=== PATIENT | female | born 1945 | race Caucasian/White ===

== ENCOUNTER → 2016-04-29 | Outpatient (CLI) | payer MEDICARE, MEDICAID ==
--- NOTE | 2016-04-29 17:37 | Diagnostic Imaging Report ---
EXAM: Bilateral screening mammogram The current study was also evaluated with a Computer Aided Detection (CAD) system. INDICATION: Screening. No current complaints stated on the questionnaire. COMPARISON: 08/31/2006. FINDINGS: The breasts are composed of scattered fibroglandular densities. An inferior right breast nodule is again noted without definite change at the 6:00 o'clock position. There is a lobulated right breast periareolar focal asymmetry measuring 1.2 CM in size which is not well seen on the previous exam due to poor penetration of the retroareolar regions. Retroareolar left breast duct ectasia appears stable. IMPRESSION: Right breast periareolar superior focal asymmetry seen. The correlating retroareolar region is difficult to evaluate on the comparison exam from 2006 with no other comparison studies available. Further evaluation with focal compression views and ultrasound is recommended. BI-RADS 0. Dictated by: Dictated on workstation # [id number]
== END ==
LOC: RAD 13:17
PROVIDERS: ATTEND Nurse Practitioner Community Health
DX: Z12.31 Encounter for screening mammogram for malignant neoplasm of breast (principal)

== ENCOUNTER → 2016-05-12 | Outpatient (CLI) | payer MEDICARE, MEDICAID ==
--- NOTE | 2016-05-12 18:51 | Diagnostic Imaging Report ---
Right breast diagnostic mammogram. The current study was also evaluated with a Computer Aided Detection (CAD) system. INDICATION: Periareolar asymmetry. FINDINGS: Focal asymmetry is still seen with smooth margins and branching appearance that may relate to duct ectasia. IMPRESSION: Periareolar lesion slightly above the nipple level is perhaps related to dilated ducts. Ultrasound evaluation pending. ACR BI-RADS Category 0: Incomplete. (Needs additional imaging evaluation). Result letter will be mailed to the patient. Note: At least 10% of breast cancer is not imaged by mammography. Dictated by: Dictated on workstation # [id number]
--- NOTE | 2016-05-12 19:00 | Diagnostic Imaging Report ---
EXAM: Right breast ultrasound. INDICATION: Periareolar region asymmetry seen on mammography. FINDINGS: In the superior periareolar region of the right breast there is 0.8 x 0.5 x 0.8 cm lobulated smoothly marginated hypoechoic lesion. There is no through-transmission and no convincing shadowing seen. No internal vascularity with color Doppler demonstrated. There is no other lesion identified. This matches the mammographic abnormality. IMPRESSION: Indeterminate lobulated 0.8 cm lesion in the superior periareolar region which may relate to dilated ducts with internal debris. Four-month follow-up ultrasound and mammogram are recommended to ensure stability. ACR BI-RADS Category 3: Probably benign findings. Result letter will be mailed to the patient. Note: At least 10% of breast cancer is not imaged by mammography. Dictated by: Dictated on workstation # [id number]
== END ==
LOC: RAD 13:35
PROVIDERS: ATTEND Nurse Practitioner Community Health
DX: R92.8 Other abnormal and inconclusive findings on diagnostic imaging of breast (principal)

== ENCOUNTER → 2016-05-21 | Outpatient (CLI) | payer MEDICARE, MEDICAID ==
--- NOTE | 2016-05-21 17:35 | Diagnostic Imaging Report ---
INDICATION: Back pain. AP and lateral views of the lumbar spine are obtained. FINDINGS: There is mild loss of height at L2. There is moderate loss of height of T12. These findings are of uncertain age. There is marked disc space narrowing at L1-L2 with ill-definition of the endplates. There is disc space narrowing which is less severe at L5-S1 and L2-L3. There is diffuse facet degenerative change from L3-S1. IMPRESSION: Degenerative changes. There is ill-definition of the disc at the L1-L2 level. It is not clear if this relates to degenerative change or discitis. There are compression deformities of L2 and T12 which are of uncertain age. Consider MRI for further evaluation as clinically warranted. Dictated by: Dictated on workstation # [id number]
== END ==
LOC: RAD 16:40
PROVIDERS: ATTEND Pain Medicine Pain Medicine
DX: M47.816 Spondylosis without myelopathy or radiculopathy, lumbar region (principal)
CPT/HCPCS: 72100

== ENCOUNTER → 2016-07-04 | Outpatient (CLI) | payer MEDICARE, MEDICAID ==
[~2016-07-04] MED LIST: GADOBUTROL 7.5 MMOL/7.5 ML (GADAVIST) VIAL IV ONE
[2016-07-04 13:15] LABS: CREATININE SERUM 1.2 MG/DL (0.60-1.30)
--- NOTE | 2016-07-04 15:42 | Diagnostic Imaging Report ---
PROCEDURE: MRI lumbar spine with and without contrast. TECHNIQUE: Multiplanar, multisequence MRI of the lumbar spine was performed with and without contrast. INDICATION: Back pain, abnormal lumbar spine radiographs 05/21/2016. That study utilized as comparison. No other priors. FINDINGS: There were no areas of abnormal enhancement following the administration of intravenous contrast. There were no findings to suggest lumbar spinal involvement by osteomyelitis or intervertebral discitis. Superior endplate compression fracture at T12 is without marrow edema compatible with an old compression deformity. There is slight grade 1 degenerative retrolisthesis T12 on L1, L1 on L2 and L2 on L3. These are off about 3 mm. Conus appeared normal. The nerves of the cauda equina revealed a normal pattern of dispersal. There is no paravertebral mass, hemorrhage, aneurysm or fluid collection demonstrated. No acute intrathecal or epidural pathology identified. L1-L2: Malalignment, disc bulge and endplate osteophytes flatten the ventral thecal sac but a substantial degree of canal stenosis was not felt present. There is moderate right and mild left neural foraminal stenosis. L2-L3: Endplate osteophytes and bulging disc material posteriorly mildly flatten the ventral thecal sac but a substantial degree of canal, foraminal or recess stenosis was not felt present. L3-L4: The disc and vertebral body endplates appeared normal. There is some buckled thickening of the ligamentum flavum and facet arthrosis. Owing to the posterior element hypertrophy, there is slight degree of canal stenosis as well as at least mild degrees of biforaminal narrowing. L4-L5: Bulging disc material, buckled thickened ligamenta flava, hypertrophied and fluid containing facets conspire to result in moderate canal stenosis with mild left and moderate right neural foraminal stenosis. L5-S1: Broad-based disc bulge at the midline effaces the ventral epidural fat and slightly indents the ventral thecal sac itself. Canal stenosis is mild and there is no substantial foraminal or recess narrowing. IMPRESSION: Old T12 superior endplate fracture. No evidence for infection or neoplasm. Degenerative changes to the discs, endplates and posterior elements result in multilevel predominantly mild to mild to moderate spinal stenoses as listed level by level above. Slight grade 1 multilevel degenerative listhesis. Dictated by: Dictated on workstation # [id number]
== END ==
LOC: RAD 12:38
PROVIDERS: ATTEND Pain Medicine Pain Medicine
DX: M54.5 Low back pain (principal)
CPT/HCPCS: 36415; 72158; 82565; 84520

== ENCOUNTER 2016-07-11 08:39 | Outpatient (CLI) | payer MEDICARE, MEDICAID ==
[~2016-07-11] VITALS: Ht 170.2 cm; Wt 104.3 kg
[2016-07-11] MEDS ORDERED: BUPIVACAINE 0.25% 30 ML (SENSORCAINE) VIAL ONE (09:02)
[2016-07-11] MEDS ORDERED: TRIAMCINOLONE ACET (KENALOG-40) 40 MG/ML 1 ML VIAL ONE (09:02)
[2016-07-11 09:17] VITALS: BP 118/65
[2016-07-11 10:06] VITALS: BP 158/79
--- NOTE | 2016-07-11 11:57 | Pain Medicine-Procedure ---
Procedure Pre-Op/Post-Op Diagnosis Diagnosis: disc disorder with radiculopathy, lumbar Indications for Operation Low back pain Attending Surgeon Abiagil Procedure Date of Service: Jul 11, 2016 Procedure: Lumbar Epidural Steroid Injection at the L4-L5 level under Fluoroscopic Guidance Procedure: Patient was identified in the holding area. After risks, benefits, and alternatives were discussed with the patient, informed consent was obtained. Patient was brought to the fluoroscopy suite and placed prone on the procedure room table. A time out was performed. Vital signs were monitored throughout the procedure. The patients low back was prepped and draped in the usual sterile fashion. The patients skin was anesthetized using 2% Lidocaine. A Tuohy needle was inserted and advanced to the L4-L5 epidural space under fluoroscopic guidance using the loss of resistance technique and intermittent projection of fluoroscopy. There was no paresthesia with needle placement. The needle position was confirmed in both the AP and lateral view. After negative aspiration 2ml of contrast was injected under live fluoroscopy which showed good spread of the contrast in the epidural space at the appropriate level, there was no intravascular or subarachnoid spread. Again, after negative aspiration for heme or CSF, 2 ml of 0.25% Bupivicaine, 2ml of preservative free normal saline, and 80mg of Kenalog was injected. The needle was removed and a sterile bandage was placed and the patient was transferred to the recovery area in stable condition. After a brief period of observation, patient was discharged to home with no new neurological deficits and no apparent complications. Complications None KUSUM BOWLES MD Jul 11, 2016 11:57 am
== END 2016-07-11 10:07 | disposition home or self-care (01) ==
LOC: CARD 08:39
PROVIDERS: ATTEND Pain Medicine Pain Medicine
DX: M51.16 Intervertebral disc disorders with radiculopathy, lumbar region (principal); Z79.899 Other long term (current) drug therapy
CPT/HCPCS: 62323

== ENCOUNTER → 2016-08-06 | Outpatient (CLI) | payer MEDICARE, MEDICAID ==
--- NOTE | 2016-08-06 10:54 | Diagnostic Imaging Report ---
INDICATION: Low back pain. EXAMINATION: Lumbar spine. FINDINGS: AP and lateral views of the lumbar spine show a grade 1 spondylolisthesis at L4-5. There is and old compression fracture of T12 with anterior wedging. The T11-12, T12-L1, and L1-L2 disc spaces are severely narrowed with large osteophyte formation. There is vacuum disc phenomena at L2-3, L4-5, and L5-S1 with disc space narrowing at each of those levels. There is a round calcification in the region of the right hepatic artery. IMPRESSION: Diffuse degenerative disc changes. No acute abnormality is seen in the lumbar spine. Dictated by: Dictated on workstation # [id number]
== END ==
LOC: RAD 10:31
PROVIDERS: ATTEND Pain Medicine Pain Medicine
DX: M54.5 Low back pain (principal)
CPT/HCPCS: 72100

== ENCOUNTER → 2016-08-12 | Outpatient (CLI) | payer MEDICARE, MEDICAID ==
[2016-08-12 08:54] LABS: MEAN PLATELET VOLUME 11.3 FL (7.4-10.4); RED BLOOD COUNT 3.63 10^6/uL (4.35-5.85)
[2016-08-12 09:08] LABS: BILIRUBIN,URINE NEGATIVE (NEGATIVE); KETONES,URINE NEGATIVE (NEGATIVE); LEUKOCYTE ESTERASE ,URINE 3+ (NEGATIVE); NITRITE,URINE NEGATIVE (NEGATIVE); PH,URINE 5 (5-9); PROTEIN,URINE NEGATIVE (NEGATIVE); UROBILINOGEN,URINE NORMAL (NORMAL)
[2016-08-12 09:14] LABS: ALBUMIN 3.9 G/DL (3.2-4.5); CALCIUM 9.5 MG/DL (8.5-10.1); CREATININE SERUM 1.39 MG/DL (0.60-1.30); PHOSPHORUS 3.4 MG/DL (2.3-4.7); POTASSIUM 4.9 MMOL/L (3.6-5.0); URIC ACID 4.2 MG/DL (2.6-7.2)
== END ==
LOC: LAB 08:25
PROVIDERS: ATTEND Nurse Practitioner
DX: E83.52 Hypercalcemia (principal); I12.9 Hypertensive chronic kidney disease with stage 1 through stage 4 chronic kidney disease, or unspecified chronic kidney disease; N18.4 Chronic kidney disease, stage 4 (severe); E78.5 Hyperlipidemia, unspecified; D63.1 Anemia in chronic kidney disease; R73.01 Impaired fasting glucose; R80.8 Other proteinuria; E79.0 Hyperuricemia without signs of inflammatory arthritis and tophaceous disease; N39.0 Urinary tract infection, site not specified
CPT/HCPCS: 36415; 80061; 80069; 81000; 82306; 82570; 82728; 83540; 84156; 84550; 85027; 87088

== ENCOUNTER 2016-08-15 12:54 | Outpatient (CLI) | payer MEDICARE, MEDICAID ==
[~2016-08-15] VITALS: Ht 170.2 cm; Wt 113.4 kg
[2016-08-15] MEDS ORDERED: BUPIVACAINE 0.25% 30 ML (SENSORCAINE) VIAL ONE (13:01)
[2016-08-15] MEDS ORDERED: TRIAMCINOLONE ACET (KENALOG-40) 40 MG/ML 1 ML VIAL ONE (13:01)
[2016-08-15 13:11] VITALS: BP 125/66
[2016-08-15 13:48] VITALS: BP 120/71
--- NOTE | 2016-08-15 14:59 | Pain Medicine-Procedure ---
Procedure Pre-Op/Post-Op Diagnosis Diagnosis: disc disorder with radiculopathy, lumbar Indications for Operation Low back pain Attending Surgeon Abigail Procedure Date of Service: Aug 15, 2016 Procedure: Lumbar Epidural Steroid Injection at the L4-L5 level under Fluoroscopic Guidance Procedure: Patient was identified in the holding area. After risks, benefits, and alternatives were discussed with the patient, informed consent was obtained. Patient was brought to the fluoroscopy suite and placed prone on the procedure room table. A time out was performed. Vital signs were monitored throughout the procedure. The patients low back was prepped and draped in the usual sterile fashion. The patients skin was anesthetized using 2% Lidocaine. A Tuohy needle was inserted and advanced to the L4-L5 epidural space under fluoroscopic guidance using the loss of resistance technique and intermittent projection of fluoroscopy. There was no paresthesia with needle placement. The needle position was confirmed in both the AP and lateral view. After negative aspiration 2ml of contrast was injected under live fluoroscopy which showed good spread of the contrast in the epidural space at the appropriate level, there was no intravascular or subarachnoid spread. Again, after negative aspiration for heme or CSF, 2 ml of 0.25% Bupivicaine, 2ml of preservative free normal saline, and 80mg of Kenalog was injected. The needle was removed and a sterile bandage was placed and the patient was transferred to the recovery area in stable condition. After a brief period of observation, patient was discharged to home with no new neurological deficits and no apparent complications. Complications None KUSUM BOWLES MD Aug 15, 2016 2:59 pm
== END 2016-08-15 13:49 ==
LOC: CARD 12:54
PROVIDERS: ATTEND Pain Medicine Pain Medicine
DX: M51.16 Intervertebral disc disorders with radiculopathy, lumbar region (principal); Z79.899 Other long term (current) drug therapy
CPT/HCPCS: 62323

== ENCOUNTER → 2016-10-17 | Outpatient (CLI) | payer MEDICARE, MEDICAID ==
--- NOTE | 2016-10-17 10:17 | Diagnostic Imaging Report ---
EXAMINATION: Right breast ultrasound. INDICATION: Followup periareolar nodule. FINDINGS: Again seen is an 8 x 3 x 8 mm lobulated hypoechoic indeterminate nodule in the 12 o'clock periareolar region. No internal vascularity is seen with color Doppler. IMPRESSION: Stable indeterminate etiology of the lobulated hypoechoic nodule at the 12 o'clock periareolar region, likely benign. Followup mammogram and ultrasound when the patient is due for her next bilateral mammogram in April 2017 would be recommended. ACR BI-RADS Category 3: Probably benign findings. Dictated by: Dictated on workstation # [id number]
--- NOTE | 2016-10-17 12:56 | Diagnostic Imaging Report ---
EXAMINATION: Right breast diagnostic mammogram with a Computer Aided Detection (CAD) system. INDICATION: Followup of periareolar nodule. FINDINGS: The right breast is composed of scattered fibroglandular densities. The lobulated focal asymmetry in the superior periareolar aspect is unchanged. Benign-appearing calcifications are seen. IMPRESSION: Unchanged superior periareolar focal asymmetry in the right breast with no adverse development. An ultrasound evaluation is pending. ACR BI-RADS Category 0: Incomplete. (Needs additional imaging evaluation). Result letter will be mailed to the patient. Note: At least 10% of breast cancer is not imaged by mammography. Dictated by: Dictated on workstation # [id number]
== END ==
LOC: RAD 07:46
PROVIDERS: ATTEND Nurse Practitioner Community Health
DX: N63 Unspecified lump in breast (principal)

== ENCOUNTER 2017-01-09 08:44 | Outpatient (RCR) | payer MEDICARE, MEDICAID ==
[2017-01-09 09:21] LABS: BILIRUBIN,URINE NEGATIVE (NEGATIVE); KETONES,URINE NEGATIVE (NEGATIVE); LEUKOCYTE ESTERASE ,URINE 3+ (NEGATIVE); NITRITE,URINE NEGATIVE (NEGATIVE); PH,URINE 5 (5-9); PROTEIN,URINE NEGATIVE (NEGATIVE); UROBILINOGEN,URINE NORMAL (NORMAL)
[2017-01-09 09:24] LABS: RED BLOOD COUNT 4.04 10^6/uL (4.35-5.85); WHITE BLOOD COUNT 9.7 10^3/uL (4.3-11.0)
[2017-01-09 09:47] LABS: ALBUMIN 4.4 GM/DL (3.2-4.5); CREATININE SERUM 1.55 MG/DL (0.60-1.30); PHOSPHORUS 3.6 MG/DL (2.3-4.7); POTASSIUM 4.6 MMOL/L (3.6-5.0); URIC ACID 4.1 MG/DL (2.6-7.2)
== END 2017-01-24 | disposition home or self-care (01) ==
LOC: LAB 08:44 → EDSTATUS 09:20
PROVIDERS: ATTEND Nurse Practitioner
DX: N25.81 Secondary hyperparathyroidism of renal origin (principal); D63.1 Anemia in chronic kidney disease; I12.9 Hypertensive chronic kidney disease with stage 1 through stage 4 chronic kidney disease, or unspecified chronic kidney disease; N18.4 Chronic kidney disease, stage 4 (severe); N39.0 Urinary tract infection, site not specified; E83.52 Hypercalcemia; E78.5 Hyperlipidemia, unspecified; R80.8 Other proteinuria; R73.01 Impaired fasting glucose; E79.0 Hyperuricemia without signs of inflammatory arthritis and tophaceous disease
CPT/HCPCS: 36415; 80061; 80069; 81000; 82306; 82570; 82728; 83540; 84156; 84550; 85027; 87088

== ENCOUNTER → 2017-03-31 | Outpatient (CLI) | payer MEDICARE, MEDICAID ==
[2017-03-31 09:36] LABS: CREATININE SERUM 1.41 MG/DL (0.60-1.30)
--- NOTE | 2017-03-31 13:59 | Diagnostic Imaging Report ---
PROCEDURE: CT abdomen without contrast. TECHNIQUE: Multiple contiguous axial images were obtained through the abdomen without the use of intravenous contrast. INDICATION: Pain, calcified nodule noted on lumbar radiographs of 08/06/2016. 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 There is only mild scattered calcified plaque of the nonaneurysmal abdominal aorta. The gallbladder is surgically absent. The liver, spleen, adrenals, and pancreas are unremarkable. The unopacified left renal hilar vascularity is unremarkable. There are no opaque kidney stones. There is a tiny fatty umbilical hernia. There is no bowel, biliary, or urinary tract obstruction. There is no ascites. IMPRESSION: 1. 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 Dimensions are as above. This shows no rupture. 2. An acute appearing abnormality is not identified. Dictated by: Dictated on workstation # [id number]
== END ==
LOC: RAD 09:07
PROVIDERS: ATTEND Nurse Practitioner Family
DX: I72.2 Aneurysm of renal artery (principal)
CPT/HCPCS: 36415; 74150; 82565; 84520

== ENCOUNTER → 2017-05-07 | Outpatient (CLI) | payer MEDICARE, MEDICAID ==
[2017-05-07 08:42] LABS: HEMOGLOBIN 10.9 G/DL (11.5-16.0); MEAN PLATELET VOLUME 11.5 FL (7.4-10.4); RED BLOOD COUNT 3.71 10^6/uL (4.35-5.85); WHITE BLOOD COUNT 8.7 10^3/uL (4.3-11.0)
[2017-05-07 08:48] LABS: BILIRUBIN,URINE NEGATIVE (NEGATIVE); CLARITY,URINE CLEAR; COLOR,URINE YELLOW; GLUCOSE, URINE (UA) NEGATIVE (NEGATIVE); KETONES,URINE NEGATIVE (NEGATIVE); LEUKOCYTE ESTERASE ,URINE 2+ (NEGATIVE); NITRITE,URINE NEGATIVE (NEGATIVE); PH,URINE 6 (5-9); PROTEIN,URINE NEGATIVE (NEGATIVE); UROBILINOGEN,URINE NORMAL (NORMAL)
[2017-05-07 08:57] LABS: ALBUMIN 4.1 GM/DL (3.2-4.5); CALCIUM 9.8 MG/DL (8.5-10.1); CREATININE SERUM 1.35 MG/DL (0.60-1.30); PHOSPHORUS 2.6 MG/DL (2.3-4.7)
[2017-05-07 09:02] LABS: BACTERIA,URINE FEW /HPF
[2017-05-07 09:09] LABS: URINE CREATININE FOR RATIO 97 MG/DL (30-125); URINE PROTEIN FOR RATIO ONLY < 6 MG/DL (6-12)
== END ==
LOC: LAB 08:12
PROVIDERS: ATTEND Nurse Practitioner
DX: I12.9 Hypertensive chronic kidney disease with stage 1 through stage 4 chronic kidney disease, or unspecified chronic kidney disease (principal); N18.4 Chronic kidney disease, stage 4 (severe); E83.52 Hypercalcemia; N25.81 Secondary hyperparathyroidism of renal origin; E78.5 Hyperlipidemia, unspecified; D63.1 Anemia in chronic kidney disease; R73.01 Impaired fasting glucose; R80.8 Other proteinuria; E79.0 Hyperuricemia without signs of inflammatory arthritis and tophaceous disease; N39.0 Urinary tract infection, site not specified; E87.2 Acidosis
CPT/HCPCS: 36415; 80069; 81000; 82306; 82570; 84156; 85027; 87088

== ENCOUNTER → 2017-06-24 | Outpatient (CLI) | payer MEDICARE, MEDICAID ==
--- NOTE | 2017-06-24 18:43 | Diagnostic Imaging Report ---
INDICATION: Right breast density. Patient presents for six-month followup. COMPARISON: Correlation is made with prior mammogram from 10/17/2016, 04/29/2016. The current study was also evaluated with a Computer Aided Detection (CAD) system. FINDINGS: Nodular density at the 12 o'clock retroareolar location of the right breast appears stable. No new mass or malignant appearing microcalcifications are seen. The axillae are unremarkable. IMPRESSION: Stable bilateral mammograms. Ultrasound of the right breast nodule is recommended and will be performed today. ACR BI-RADS Category 0: Incomplete. (Needs additional imaging evaluation). Result letter will be mailed to the patient. Note: At least 10% of breast cancer is not imaged by mammography. Dictated by: Dictated on workstation # [id number]
--- NOTE | 2017-06-24 18:45 | Diagnostic Imaging Report ---
INDICATION: Right breast nodule. Patient presents for followup. COMPARISON: Correlation is made with right breast ultrasound from 10/17/2016. FINDINGS: The previously noted hypoechoic nodule at the 12 o'clock retroareolar location appears stable at 7 mm x 3 mm x 8 mm. No internal vascularity is seen. No new abnormality is detected. IMPRESSION: Stable right breast nodule. Followup mammogram and ultrasound in six months is recommended to show continued stability. ACR BI-RADS Category 3: Probably benign findings. Dictated by: Dictated on workstation # [id number]
== END ==
LOC: RAD 12:22
PROVIDERS: ATTEND Nurse Practitioner Community Health
DX: N63.10 Unspecified lump in the right breast, unspecified quadrant (principal)
CPT/HCPCS: 77066

== ENCOUNTER → 2017-08-24 | Outpatient (CLI) | payer MEDICARE, MEDICAID ==
[2017-08-24 09:00] LABS: HEMOGLOBIN 10.6 G/DL (11.5-16.0); MEAN PLATELET VOLUME 11.1 FL (7.4-10.4); RED BLOOD COUNT 3.73 10^6/uL (4.35-5.85); RED CELL DISTRIBUTION WIDTH 14.5 % (10.0-14.5); WHITE BLOOD COUNT 8.3 10^3/uL (4.3-11.0)
[2017-08-24 09:08] LABS: BILIRUBIN,URINE NEGATIVE (NEGATIVE); CLARITY,URINE CLEAR; COLOR,URINE YELLOW; GLUCOSE, URINE (UA) NEGATIVE (NEGATIVE); KETONES,URINE NEGATIVE (NEGATIVE); LEUKOCYTE ESTERASE ,URINE 1+ (NEGATIVE); NITRITE,URINE NEGATIVE (NEGATIVE); PH,URINE 5 (5-9); PROTEIN,URINE NEGATIVE (NEGATIVE); UROBILINOGEN,URINE NORMAL (NORMAL)
[2017-08-24 09:14] LABS: ALBUMIN 4.2 GM/DL (3.2-4.5); CALCIUM 10.8 MG/DL (8.5-10.1); CREATININE SERUM 1.42 MG/DL (0.60-1.30); PHOSPHORUS 3.1 MG/DL (2.3-4.7); POTASSIUM 4.3 MMOL/L (3.6-5.0)
[2017-08-24 09:16] LABS: BACTERIA,URINE FEW /HPF
== END ==
LOC: LAB 08:40
PROVIDERS: ATTEND Nurse Practitioner
DX: I12.9 Hypertensive chronic kidney disease with stage 1 through stage 4 chronic kidney disease, or unspecified chronic kidney disease (principal); D63.1 Anemia in chronic kidney disease; N18.4 Chronic kidney disease, stage 4 (severe); N39.0 Urinary tract infection, site not specified; E83.52 Hypercalcemia; N25.81 Secondary hyperparathyroidism of renal origin; E78.5 Hyperlipidemia, unspecified; R73.01 Impaired fasting glucose; R80.8 Other proteinuria; E79.0 Hyperuricemia without signs of inflammatory arthritis and tophaceous disease; E87.2 Acidosis
CPT/HCPCS: 36415; 80069; 81000; 82570; 82728; 83540; 84156; 85027

== ENCOUNTER → 2018-01-13 | Outpatient (CLI) | payer MEDICARE, MEDICAID ==
--- NOTE | 2018-01-13 13:18 | Diagnostic Imaging Report ---
INDICATION: Six-month followup right breast nodule. Correlation made with prior mammograms 06/24/2017, 10/17/2016 as well as 05/12/2016. Unilateral right 2-D and 3-D diagnostic mammography was performed. Scattered fibroglandular densities are identified in the right breast. The nodular density in the 12 o'clock retroareolar right breast appears stable. No new mass or malignant-appearing micro-calcifications are seen. The right axilla is unremarkable. IMPRESSION: BI-RADS zero Stable right mammogram and right breast retroareolar nodule. Sonographic interrogation is recommended to show continued stability by ultrasound and will be performed today. Dictated by: Dictated on workstation # [id number]
--- NOTE | 2018-01-13 18:14 | Diagnostic Imaging Report ---
INDICATION: Retroareolar density. Patient presents for six-month followup. COMPARISON: Correlation is made with a diagnostic mammogram earlier the same day as well as a prior breast ultrasound from 06/24/2017. EXAMINATION: Sonographic interrogation of the 12 o'clock retroareolar region was performed. FINDINGS: There is an area of hypoechogenicity at this location measuring 7 mm x 3 mm x 7 mm, similar to prior study. This could represent fibroglandular tissue. No vascularity is seen. No other abnormality is detected. IMPRESSION: BI-RADS category 2. Stable right breast ultrasound. This area now demonstrates approximately 20 months of stability. Patient may return to routine annual screening mammography. Dictated by: Dictated on workstation # [id number]
== END ==
LOC: RAD 12:50
PROVIDERS: ATTEND Nurse Practitioner Community Health
DX: N63.10 Unspecified lump in the right breast, unspecified quadrant (principal)

== ENCOUNTER → 2018-03-23 | Outpatient (CLI) | payer MEDICARE, MEDICAID ==
[2018-03-23 09:05] LABS: HEMOGLOBIN 10.1 G/DL (11.5-16.0); MEAN PLATELET VOLUME 11.3 FL (7.4-10.4); RED BLOOD COUNT 3.53 10^6/uL (4.35-5.85); RED CELL DISTRIBUTION WIDTH 14.4 % (10.0-14.5); WHITE BLOOD COUNT 7.3 10^3/uL (4.3-11.0)
[2018-03-23 09:24] LABS: ALBUMIN 4.2 GM/DL (3.2-4.5); CALCIUM 9.9 MG/DL (8.5-10.1); CREATININE SERUM 1.41 MG/DL (0.60-1.30); PHOSPHORUS 2.8 MG/DL (2.3-4.7); POTASSIUM 4.1 MMOL/L (3.6-5.0)
[2018-03-23 09:30] LABS: URINE CREATININE FOR RATIO 86 MG/DL (30-125); URINE PROTEIN FOR RATIO ONLY < 6 MG/DL (6-12)
== END ==
LOC: LAB 08:39
PROVIDERS: ATTEND Internal Medicine Nephrology
DX: I12.9 Hypertensive chronic kidney disease with stage 1 through stage 4 chronic kidney disease, or unspecified chronic kidney disease (principal); N18.4 Chronic kidney disease, stage 4 (severe); R73.01 Impaired fasting glucose; E83.52 Hypercalcemia; N25.81 Secondary hyperparathyroidism of renal origin; E78.5 Hyperlipidemia, unspecified; D63.1 Anemia in chronic kidney disease; R80.8 Other proteinuria; E79.0 Hyperuricemia without signs of inflammatory arthritis and tophaceous disease; N39.0 Urinary tract infection, site not specified; E87.2 Acidosis
CPT/HCPCS: 36415; 80061; 80069; 82306; 82570; 83036; 83970; 84156; 85027

== ENCOUNTER 2018-06-28 05:35 | Outpatient (CLI) | payer MEDICARE, MEDICAID ==
[~2018-06-28] VITALS: Ht 170.2 cm; Wt 113.4 kg
[2018-06-28] MEDS ORDERED: FERR-65 PO (09:21)
[2018-06-28] MEDS ORDERED: CHOL100045 PO (09:21)
[2018-06-28] MEDS ORDERED: ALLO100T PO (09:21)
[2018-06-28] MEDS ORDERED: GABA-490 PO (09:21)
[2018-06-28] MEDS ORDERED: LISI1TAB10 PO (09:21)
[2018-06-28] MEDS ORDERED: ESCI10TA PO (09:21)
[2018-06-30] MEDS ORDERED: TRAM50TA2 PO (09:47)
== END 2018-06-28 09:24 | disposition home or self-care (01) ==
LOC: PREOP 05:35
PROVIDERS: ATTEND Surgery
DX: Z01.818 Encounter for other preprocedural examination (principal)

== ENCOUNTER 2018-06-30 07:43 | Day surgery (SDC) | payer MEDICARE, MEDICAID ==
[~2018-06-30] VITALS: Ht 170.2 cm; Wt 113.4 kg
[~2018-06-30 07:43] MED LIST changes: +ALLO100T PO; +CHOL100045 PO; +ESCI10TA PO; +FERR-65 PO; +GABA-490 PO; -GADOBUTROL 7.5 MMOL/7.5 ML (GADAVIST) VIAL IV ONE; +LISI1TAB10 PO
[2018-06-30] MEDS ORDERED: LACTATED RINGERS 1,000 ML IV PRN (07:59)
[2018-06-30] MEDS ORDERED: ceFAZolin 2 GM IV Premixed 50 ML IV ONE (08:00)
[2018-06-30 08:10] VITALS: BP 109/58
--- NOTE | 2018-06-30 08:23 | Progress Note-Pre Operative ---
Pre-Operative Progress Note H&P Reviewed The H&P was reviewed, patient examined and no changes noted. Date Seen by Provider: Jun 17, 2018 Time Seen by Provider: 10:00 Date H&P Reviewed: Jun 30, 2018 Time H&P Reviewed: 08:23 Pre-Operative Diagnosis: Josh cyst- Forehead MAGDALENA DEVI MD Jun 30, 2018 08:23
[2018-06-30] MEDS ORDERED: BUP/EPI 0.5% 1:200,000 (SENSORCAINE) 30 ML VIAL ONE (08:35)
[2018-06-30] MEDS ORDERED: ceFAZolin 2 GM IV Premixed 50 ML ONE (08:50)
[2018-06-30] MEDS ORDERED: ONDANSETRON 4 MG/2 ML (SDV) Z0FRAN ONE (08:56)
[2018-06-30] MEDS ORDERED: proPOfol 200 MG/20 ML (DIPRIVAN) VIAL IV ONE (08:56)
[2018-06-30] MEDS ORDERED: MIDAZOLAM 2 MG/2 ML (VERSED) VIAL ONE (08:56)
[2018-06-30] MEDS ORDERED: LIDOCAINE PF 2% 5 ML (XYLOCAINE) VIAL ONE (08:56)
[2018-06-30] MEDS ORDERED: fentaNYL INJECTION 100 MCG/2 ML AMP ONE (08:56)
[2018-06-30] MEDS ORDERED: PHENYLEPHRINE 100 MCG/ML 10 ML (ANESTHESIA) SYR ONE (09:29)
[2018-06-30] MEDS ORDERED: TRAM50TA2 PO (09:47)
--- NOTE | 2018-06-30 09:48 | Discharge Inst-Simple/Standard ---
Discharge Inst-Standard Discharge Medications New, Converted or Re-Newed RX: RX on Chart Patient Instructions/Follow Up Plan of Care/Instructions/FU: Dressing off in 48 hours. No sutures to be removed. To call if concerns arise Activity as Tolerated: Yes Discharge Diet: No Restrictions MAGDALENA DEVI MD Jun 30, 2018 09:48
[2018-06-30] MEDS ORDERED: morphine INJ 10 MG/ML 1ML (SYR OR VIAL) IVP ONE (10:00)
[2018-06-30] MEDS ORDERED: ONDANSETRON 4 MG/2 ML (SDV) Z0FRAN IVP PRN (10:00)
[2018-06-30] MEDS ORDERED: MEPERIDINE (DEMEROL) INJ 50 MG/ML IVP ONE (10:00)
[2018-06-30 10:40] VITALS: BP 112/59
[2018-06-30 11:10] VITALS: BP 109/54
[2018-06-30 11:20] VITALS: BP 109/54
--- NOTE | 2018-06-30 12:04 | Operative Report ---
Operative Report Date of Procedure/Surgery Jun 30, 2018 Surgeon (s) MAGDALENA DEVI MD [employer] Preflight (s): N/A Post-Operative Diagnosis sebaceous cyst of forehead Procedure Performed excision Description of Procedure Anesthesia Type: General Estimated blood loss (mL): minimal Specimen(s) collected/removed sebaceous cyst Description of the Procedure Indication for the procedure: This lady presented with a 2 cm sebaceous cyst over her forehead and requested excision. Informed consent was obtained after reviewing the operative details and complications of hematoma, wound infection and recurrence of the cyst. Description of the procedure: She was placed supine on the operating table and general anesthesia induced. Prophylactic antibiotics were administered intravenously, to protect against wound infection. The area was prepared and draped in the usual sterile manner. Preemptive analgesia was established using 0.5 percent Marcaine with epinephrine. An elliptical incision about 3 cm in length was made and the cyst excised intact. Hemostasis was achieved using cautery and the incision closed using intermittent 4-0 Vicryl, in a subcuticular fashion. Steri-Strips and a compression dressing were applied. She tolerated the procedure well, was extubated in the operative room and taken to the recovery room in a stable condition. Findings of the Procedure see operative report Allergies and Home Medications Allergies Coded Allergies: No Known Drug Allergies (Unverified , 07/04/16) Home Medications Allopurinol 100 Mg Tablet, 100 MG PO BID, (Reported) Cholecalciferol (Vitamin D3) 1,000 Unit Tablet, 1,000 UNIT PO Q48H, (Reported) Escitalopram Oxalate 10 Mg Tablet, 10 MG PO DAILY, (Reported) Ferrous Sulfate 325 Mg Tablet, 325 MG PO BID, (Reported) Gabapentin 400 Mg Capsule, 400 MG PO TID PRN for neuropathic pain, (Reported) Lisinopril/Hydrochlorothiazide 1 Each Tablet, 1 EACH PO DAILY, (Reported) Tramadol HCl 50 Mg Tablet, 50 MG PO Q12H Prescribed by: MAGDALENA DEVI on 06/30/18 0957 Patient Home Medication List Home Medication List Reviewed: Yes MAGDALENA DEVI MD Jun 30, 2018 12:04
--- NOTE | 2018-06-30 14:44 | Anesthesia-General Post-Op ---
General Patient Condition Mental Status/LOC: Same as Preop Cardiovascular: Satisfactory Nausea/Vomiting: Absent Respiratory: Satisfactory Pain: Controlled Complications: Absent Post Op Complications Complications None Follow Up Care/Instructions Patient Instructions None needed. Anesthesia/Patient Condition Patient Condition Patient was seen after the procedure and she was doing well, no complaints, stable vital signs, no apparent adverse anesthesia problems. SARAH BALBUENA DO Jun 30, 2018 14:44
== END 2018-06-30 11:25 | disposition home or self-care (01) ==
LOC: SDC 07:43
PROVIDERS: ATTEND Surgery
DX: L72.3 Sebaceous cyst (principal); Z11.2 Encounter for screening for other bacterial diseases; I12.9 Hypertensive chronic kidney disease with stage 1 through stage 4 chronic kidney disease, or unspecified chronic kidney disease; N18.9 Chronic kidney disease, unspecified; K21.9 Gastro-esophageal reflux disease without esophagitis; Z86.73 Personal history of transient ischemic attack (TIA), and cerebral infarction without residual deficits; Z79.899 Other long term (current) drug therapy
CPT/HCPCS: 87081

== ENCOUNTER → 2018-09-21 | Outpatient (CLI) | payer MEDICARE, MEDICAID ==
[~2018-09-21] MED LIST changes: +TRAM50TA2 PO
[2018-09-21 09:01] LABS: BASOPHILS % (AUTO) 0 % (0-10); EOSINOPHILS # (AUTO) 0.4 10^3/uL (0.0-0.3); EOSINOPHILS % (AUTO) 5 % (0-10); HEMATOCRIT 34 % (35-52); HEMOGLOBIN 10.9 G/DL (11.5-16.0); LYMPHOCYTES # (AUTO) 2.1 X 10^3 (1.0-4.0); LYMPHOCYTES % (AUTO) 23 % (12-44); MEAN CORPUSCULAR HEMOGLOBIN 28 PG (25-34); MEAN CORPUSCULAR HGB CONC 32 G/DL (32-36); MEAN CORPUSCULAR VOLUME 89 FL (80-99); MEAN PLATELET VOLUME 11.5 FL (7.4-10.4); MONOCYTES # (AUTO) 0.7 X 10^3 (0.0-1.0); MONOCYTES % (AUTO) 7 % (0-12); NEUTROPHILS % (AUTO) 65 % (42-75); PLATELET COUNT 238 10^3/uL (130-400); RED CELL DISTRIBUTION WIDTH 13.9 % (10.0-14.5); WHITE BLOOD COUNT 9.2 10^3/uL (4.3-11.0)
[2018-09-21 09:10] LABS: BILIRUBIN,URINE NEGATIVE (NEGATIVE); CLARITY,URINE CLEAR; COLOR,URINE YELLOW; GLUCOSE, URINE (UA) NEGATIVE (NEGATIVE); KETONES,URINE NEGATIVE (NEGATIVE); LEUKOCYTE ESTERASE ,URINE 1+ (NEGATIVE); NITRITE,URINE NEGATIVE (NEGATIVE); PH,URINE 6.5 (5-9); PROTEIN,URINE NEGATIVE (NEGATIVE); UROBILINOGEN,URINE NORMAL (NORMAL)
[2018-09-21 09:18] LABS: BACTERIA,URINE FEW /HPF
[2018-09-21 09:23] LABS: ALBUMIN 4.3 GM/DL (3.2-4.5); BILIRUBIN,TOTAL 0.3 MG/DL (0.1-1.0); CALCIUM 10.9 MG/DL (8.5-10.1); CREATININE SERUM 2.04 MG/DL (0.60-1.30); MAGNESIUM 1.5 MG/DL (1.8-2.4); TOTAL PROTEIN 6.9 GM/DL (6.4-8.2); URIC ACID 4.8 MG/DL (2.6-7.2)
== END ==
LOC: LAB 08:40
PROVIDERS: ATTEND Nurse Practitioner
DX: I13.10 Hypertensive heart and chronic kidney disease without heart failure, with stage 1 through stage 4 chronic kidney disease, or unspecified chronic kidney disease (principal); N18.4 Chronic kidney disease, stage 4 (severe); E83.52 Hypercalcemia; N25.81 Secondary hyperparathyroidism of renal origin; E78.5 Hyperlipidemia, unspecified; D63.1 Anemia in chronic kidney disease; R73.01 Impaired fasting glucose; R80.8 Other proteinuria; E79.0 Hyperuricemia without signs of inflammatory arthritis and tophaceous disease; N39.0 Urinary tract infection, site not specified; E87.2 Acidosis
CPT/HCPCS: 36415; 80053; 80061; 81000; 82306; 82570; 83735; 83970; 84156; 84550; 85025

== ENCOUNTER → 2018-10-11 | Outpatient (CLI) | payer MEDICARE, MEDICAID ==
[2018-10-11 09:31] LABS: ALBUMIN 4.4 GM/DL (3.2-4.5); CALCIUM 10.8 MG/DL (8.5-10.1); CREATININE SERUM 1.74 MG/DL (0.60-1.30); PHOSPHORUS 2.4 MG/DL (2.3-4.7); URIC ACID 4.1 MG/DL (2.6-7.2)
== END ==
LOC: LAB 08:44
PROVIDERS: ATTEND Nurse Practitioner
DX: I13.10 Hypertensive heart and chronic kidney disease without heart failure, with stage 1 through stage 4 chronic kidney disease, or unspecified chronic kidney disease (principal); N18.4 Chronic kidney disease, stage 4 (severe); E83.52 Hypercalcemia; N25.81 Secondary hyperparathyroidism of renal origin; E78.5 Hyperlipidemia, unspecified; D63.1 Anemia in chronic kidney disease; R73.01 Impaired fasting glucose; R80.8 Other proteinuria; E79.0 Hyperuricemia without signs of inflammatory arthritis and tophaceous disease; N39.0 Urinary tract infection, site not specified; E87.2 Acidosis
CPT/HCPCS: 36415; 80069; 84550

== ENCOUNTER → 2019-02-08 | Outpatient (CLI) | payer MEDICARE, MEDICAID ==
[2019-02-08 13:16] LABS: RED CELL DISTRIBUTION WIDTH 14.1 % (10.0-14.5); WHITE BLOOD COUNT 7.5 10^3/uL (4.3-11.0)
[2019-02-08 13:22] LABS: BILIRUBIN,URINE NEGATIVE (NEGATIVE); CLARITY,URINE CLEAR; COLOR,URINE YELLOW; GLUCOSE, URINE (UA) NEGATIVE (NEGATIVE); KETONES,URINE NEGATIVE (NEGATIVE); LEUKOCYTE ESTERASE ,URINE NEGATIVE (NEGATIVE); NITRITE,URINE NEGATIVE (NEGATIVE); PH,URINE 6.5 (5-9); PROTEIN,URINE NEGATIVE (NEGATIVE); UROBILINOGEN,URINE NORMAL (NORMAL)
[2019-02-08 13:39] LABS: ALBUMIN 4.2 GM/DL (3.2-4.5); CALCIUM 10.1 MG/DL (8.5-10.1); CREATININE SERUM 1.39 MG/DL (0.60-1.30); PHOSPHORUS 1.8 MG/DL (2.3-4.7); POTASSIUM 4.1 MMOL/L (3.6-5.0); URIC ACID 4.4 MG/DL (2.6-7.2)
[2019-02-08 13:43] LABS: BACTERIA,URINE FEW /HPF; WBC,URINE RARE /HPF
[2019-02-08 13:49] LABS: URINE CREATININE FOR RATIO 56 MG/DL (30-125); URINE PROTEIN FOR RATIO ONLY < 6 MG/DL (6-12)
== END ==
LOC: LAB 12:49
PROVIDERS: ATTEND Nurse Practitioner
DX: I12.9 Hypertensive chronic kidney disease with stage 1 through stage 4 chronic kidney disease, or unspecified chronic kidney disease (principal); N18.4 Chronic kidney disease, stage 4 (severe); E83.52 Hypercalcemia; N25.81 Secondary hyperparathyroidism of renal origin; E78.5 Hyperlipidemia, unspecified; D63.1 Anemia in chronic kidney disease; E79.0 Hyperuricemia without signs of inflammatory arthritis and tophaceous disease; N39.0 Urinary tract infection, site not specified; E87.2 Acidosis; N25.0 Renal osteodystrophy; R80.8 Other proteinuria; R73.01 Impaired fasting glucose
CPT/HCPCS: 36415; 80069; 81000; 82306; 82570; 83970; 84156; 84550; 85027

== ENCOUNTER → 2019-10-14 | Outpatient (CLI) | payer MEDICARE, MEDICAID ==
[~2019-10-14] MED LIST changes: -LISI1TAB10 PO; +LISI1TAB26 PO; -TRAM50TA2 PO; +TRM50T PO
--- NOTE | 2019-10-14 14:01 | Diagnostic Imaging Report ---
INDICATION: Routine screening. COMPARISON is made with prior mammograms from 06/24/2017 and 04/29/2016. 2-D and 3-D bilateral screening mammography was performed with CAD. Scattered fibroglandular densities are identified bilaterally. The parenchymal pattern is stable. No dominant mass or malignant appearing microcalcifications are seen. Axillae are unremarkable. IMPRESSION: BI-RADS Category 1 No mammographic features suspicious for malignancy are identified. ACR BI-RADS Category 1: Negative. Result letter will be mailed to the patient. Note: At least 10% of breast cancer is not imaged by mammography. Dictated by: Dictated on workstation # [id number]
== END ==
LOC: RAD 10:50
PROVIDERS: ATTEND Nurse Practitioner Community Health
DX: Z12.31 Encounter for screening mammogram for malignant neoplasm of breast (principal)
CPT/HCPCS: 77063; 77067

== ENCOUNTER → 2020-11-16 | Outpatient (CLI) | payer MEDICARE, MEDICAID | LOC: CARD 11:00 | PROVIDERS: ATTEND Pediatrics | DX: I08.0 Rheumatic disorders of both mitral and aortic valves (principal) | CPT/HCPCS: 93306 ==

== ENCOUNTER → 2020-12-28 | Outpatient (CLI) | payer MEDICARE, MEDICAID ==
--- NOTE | 2020-12-28 11:45 | Diagnostic Imaging Report ---
EXAMINATION: CHEST (PA AND LATERAL) CLINICAL INDICATION: 75-year-old female, chest pain. Left ventricular diastolic dysfunction. COMPARISON: None. FINDINGS: Heart size and mediastinal contours are unremarkable. There is no identified pneumothorax. There is no pleural effusion. There is no identified focal airspace consolidation. There is an anchor in the left humeral head. IMPRESSION: No identified acute cardiopulmonary abnormality. Dictated by: Dictated on workstation # [id number]
== END ==
LOC: LAB 10:26
PROVIDERS: ATTEND Internal Medicine Cardiovascular Disease
DX: I50.30 Unspecified diastolic (congestive) heart failure (principal)
CPT/HCPCS: 36415; 71046; 83880

== ENCOUNTER → 2021-01-04 | Outpatient (CLI) | payer MEDICARE, MEDICAID ==
--- NOTE | 2021-01-04 12:21 | Diagnostic Imaging Report ---
INDICATION: Abdominal aortic aneurysm. The proximal abdominal aorta measures 2.27 cm AP by 1.9 cm transverse. Midabdominal aorta measures 2.07 m AP x 2.0 cm transverse. The distal abdominal aorta measures 1.37 m AP x 1.5 cm transverse. Iliacs were obscured by bowel gas. No periaortic fluid collection is seen. IMPRESSION: No evidence of abdominal aortic aneurysm. Dictated by: Dictated on workstation # [id number]
== END ==
LOC: RAD 10:00
PROVIDERS: ATTEND Internal Medicine Cardiovascular Disease
DX: I71.4 Abdominal aortic aneurysm, without rupture (principal)
CPT/HCPCS: 76775

== ENCOUNTER 2021-02-15 09:57 | Outpatient (CLI) | payer MEDICARE, MEDICAID | END 2021-02-15 10:18 | LOC: SLEEP 09:57 | PROVIDERS: ATTEND Internal Medicine Cardiovascular Disease | DX: G47.36 Sleep related hypoventilation in conditions classified elsewhere (principal); E66.9 Obesity, unspecified; I49.9 Cardiac arrhythmia, unspecified; I13.0 Hypertensive heart and chronic kidney disease with heart failure and stage 1 through stage 4 chronic kidney disease, or unspecified chronic kidney disease; I50.30 Unspecified diastolic (congestive) heart failure; N18.30 Chronic kidney disease, stage 3 unspecified; E78.2 Mixed hyperlipidemia; K21.9 Gastro-esophageal reflux disease without esophagitis; I35.8 Other nonrheumatic aortic valve disorders; I71.4 Abdominal aortic aneurysm, without rupture; Z86.73 Personal history of transient ischemic attack (TIA), and cerebral infarction without residual deficits | CPT/HCPCS: G0399 ==